=== PATIENT | female | born 1980 | race African-American/Black ===

== ENCOUNTER 2017-06-17 02:08 | Emergency (ER) | payer BC ==
[~2017-06-17] VITALS: Ht 175.3 cm; Wt 182.0 kg
[2017-06-17 02:10] VITALS: BP 137/97; PULSE 116; RESP 20; TEMP 99.9; O2SAT 97
[2017-06-17 02:46] VITALS: TEMP 101.9
[2017-06-17] MEDS ORDERED: SODIUM CHLOR 0.9% 1000 ML INJ 1,000 ML IV ONE ×2 (03:20→05:30)
[2017-06-17] MEDS ORDERED: ACETAMINOPHEN 325 MG TAB PO ONE (03:30)
[2017-06-17 03:39] VITALS: BP 133/99; PULSE 108; RESP 26; O2SAT 100
[2017-06-17] MEDS ORDERED: ONDANSETRON HCL 4 MG/2 ML VIAL IV PUSH ONE (03:45)
[2017-06-17 03:46] LABS: AUTOMATED NEUTROPHIL # 14.8 TH/MM3 (1.8-7.7); BASOPHIL % 0.2 % (0.0-2.0); EOSINOPHIL # 0.1 TH/MM3 (0-0.4); EOSINOPHIL % 0.3 % (0.0-4.0); HEMATOCRIT 38.2 % (35.0-46.0); HEMO FLAGS DIFF FINAL; LYMPH % 7.8 % (9.0-44.0); LYMPHOCYTE # 1.4 TH/MM3 (1.0-4.8); MEAN CELL VOLUME 73.2 FL (80.0-100.0); MEAN CORPUSCULAR HEMOGLOBIN 22.9 PG (27.0-34.0); MEAN CORPUSCULAR HGB CONC 31.2 % (32.0-36.0); NEUT % 84.7 % (16.0-70.0); PLATELET COUNT 316 TH/MM3 (150-450); RED BLOOD COUNT 5.22 MIL/MM3 (4.00-5.30); RED CELL DISTRIBUTION WIDTH 13.9 % (11.6-17.2); WHITE BLOOD COUNT 17.5 TH/MM3 (4.0-11.0)
[2017-06-17 03:55] LABS: ALT (GPT) 35 U/L (10-53); ANION GAP 8 MEQ/L (5-15); AST (GOT) 25 U/L (15-37); BICARBONATE 28.3 MEQ/L (21.0-32.0); BLOOD UREA NITROGEN 13 MG/DL (7-18); CHLORIDE 103 MEQ/L (98-107); GLOMERULAR FILTRATION RATE 75 ML/MIN (>89); POTASSIUM 3.6 MEQ/L (3.5-5.1); SODIUM (NA) 139 MEQ/L (136-145)
[2017-06-17 03:57] LABS: APTT (PATIENT) 24.6 SEC (24.3-30.1); PROTHROMBIN TIME - PATIENT 10.8 SEC (9.8-11.6)
[2017-06-17 03:58] LABS: ALKALINE PHOSPHATASE 54 U/L (45-117); TOTAL BILIRUBIN ADULT 0.4 MG/DL (0.2-1.0)
--- NOTE | 2017-06-17 04:14 | RADRPT ---
EXAM DATE/TIME: 06/17/2017 03:26 [facility] COMPARISON: No previous studies available for comparison. INDICATIONS : Fever and chills, uncontrollable shaking MEDICAL HISTORY : None. SURGICAL HISTORY : None. ENCOUNTER: Initial ACUITY: 1 day PAIN SCORE: 6/10 LOCATION: Bilateral chest FINDINGS: A single view of the chest demonstrates the lungs to be symmetrically aerated without evidence of mas s, infiltrate or effusion. The cardiomediastinal contours are unremarkable. Osseous structures are intact. CONCLUSION: No acute disease. Raul Chacon MD on June 17, 2017 at 4:12 Board Certified Radiologist. This report was verified electronically.
[2017-06-17 04:47] VITALS: BP_SYST 16; BP_SYST 164; BP_DIAS 92; PULSE 104; RESP 20; TEMP 103.1; O2SAT 100
[2017-06-17] MEDS ORDERED: METOCLOPRAMIDE INJ 10 MG in SODIUM CHLORIDE 0.9% INJ 50 ML IV ONE (05:00)
[2017-06-17] MEDS ORDERED: KETOROLAC TROMETHAMINE 30 MG/ML (IVP) VIAL IV PUSH ONE (05:30)
[2017-06-17] MEDS ORDERED: IOHEXOL 350 MG/ML 10 ML VIAL (for RAD DIAG) IV ONE (05:34)
--- NOTE | 2017-06-17 05:54 | RADRPT ---
EXAM DATE/TIME: 06/17/2017 05:33 [facility] COMPARISON: No previous studies available for comparison. INDICATIONS : Abdominal pain with nausea and weakness. IV CONTRAST: 95 cc Omnipaque 350 (iohexol) IV ORAL CONTRAST: No oral contrast ingested. RADIATION DOSE: 29.44 CTDIvol (mGy) ; Patient body habitus MEDICAL HISTORY : None SURGICAL HISTORY : None. ENCOUNTER: Initial ACUITY: 1 day PAIN SCALE: 4/10 LOCATION: Bilateral abdomen TECHNIQUE: Volumetric scanning of the abdomen and pelvis was performed. Using automated exposure control and ad justment of the mA and/or kV according to patient size, radiation dose was kept as low as reasonably achievable to obtain optimal diagnostic quality images. DICOM format image data is available electro nically for review and comparison. FINDINGS: LOWER LUNGS: The visualized lower lungs are clear. LIVER: Decreased density without lesion. There is no dilation of the biliary tree. No calcified gallstones . SPLEEN: Normal size without lesion. PANCREAS: Within normal limits. KIDNEYS: Normal in size and shape. There is no mass, stone or hydronephrosis. ADRENAL GLANDS: Within normal limits. VASCULAR: There is no aortic aneurysm. BOWEL/MESENTERY: The stomach, small bowel, and colon demonstrate no acute abnormality. There is no free intraperitone al air or fluid. Prominent lymph nodes in the upper abdomen are habitus region measures 1.9 cm. There are some other smaller scattered lymph nodes in the right lower quadrant mesentery. ABDOMINAL WALL: Within normal limits. RETROPERITONEUM: There is no lymphadenopathy. BLADDER: No wall thickening or mass. REPRODUCTIVE: Within normal limits. INGUINAL: There is no lymphadenopathy or hernia. MUSCULOSKELETAL: Within normal limits for patient age. CONCLUSION: 1. Hepatic steatosis. 2. Prominent lymph node in the morales hepatis measures 1.9 cm. Other smaller lymph nodes are seen with in the right lower quadrant mesentery. Raul Chacon MD on June 17, 2017 at 5:49 Board Certified Radiologist. This report was verified electronically.
[2017-06-17 05:55] LABS: BACTERIA, URINE RARE /hpf; BLOOD, URINE TRACE (NEG); GLUCOSE,URINE NEG (NEG); KETONE, URINE NEG (NEG); MUCUS URINE FEW /lpf (OCC); NITRITE,URINE NEG (NEG); SQUAMOUS EPITHELIAL CELL URINE 4 /hpf (0-5); URINE COLOR YELLOW (YELLW/STRAW)
[2017-06-17 05:56] LABS: COMMENT (UR) CATH-CULTURE IND; CULTURE IF INDICATED CATH CULTURE IND
[2017-06-17] MEDS ORDERED: cefTRIAXone INJ 1,000 MG in SODIUM CHLORIDE 0.9% INJ 100 ML IV ONE (06:00)
[2017-06-17 06:21] VITALS: BP 158/89; PULSE 89; RESP 16; TEMP 101.2; O2SAT 99
[2017-06-17] MEDS ORDERED: CIPR-9 PO (06:47)
--- NOTE | 2017-06-17 06:47 | PD ---
HPI Chief Complaint: Fever Time Seen by Provider: 03:14 Travel History International Travel<30 days: No Contact w/Intl Traveler<30days: No Traveled to known affect area: No History of Present Illness HPI Patient is a 36-year-old female who comes in complaining of chills. She says she woke up from sleep and she was very very cold. She says that she felt some nausea and some dizziness. She says she has not had any pain. She says before she went to sleep she was feeling fine. She says she has had nausea and vomiting. She denies abdominal pain. She denies chest pain or shortness of breath. She denies cough or cold. PFSH Past Medical History Medical History: Denies Significant Hx Tetanus Vaccination: < 5 Years Influenza Vaccination: No ?: Not LMP: 05/12/17 : 0 Social History Alcohol Use: No Tobacco Use: No Substance Use: No Allergies-Medications (Allergen,Severity, Reaction): Coded Allergies: No Known Allergies (Unverified , 06/17/17) Reported Meds & Prescriptions Reported Meds & Active Scripts Active No Active Prescriptions or Reported Medications Review of Systems Except as stated in HPI: all other systems reviewed are Neg General / Constitutional: Positive: Fever, Chills HENT: No: Lightheadedness, Sore Throat, Congestion Cardiovascular: No: Chest Pain or Discomfort Respiratory: No: Cough, Shortness of Breath Gastrointestinal: Positive: Nausea, Vomiting, No: Abdominal Pain Genitourinary: No: Urgency, Frequency Skin: No Rash, No Change in Pigmentation Neurologic: No: Weakness, Dizziness Physical Exam Narrative GENERAL: Awake and alert, obviously uncomfortable. SKIN: Focused skin assessment warm/dry. HEAD: Atraumatic. Normocephalic. EYES: Pupils equal and round. No scleral icterus. ENT: Mucous membranes pink and moist. NECK: Trachea midline. No JVD. CARDIOVASCULAR: Regular rate and rhythm. No murmur appreciated. RESPIRATORY: No accessory muscle use. Clear to auscultation. Breath sounds equal bilaterally. GASTROINTESTINAL: Abdomen soft, non-tender, nondistended. MUSCULOSKELETAL: No obvious deformities. No clubbing. No cyanosis. No edema. NEUROLOGICAL: Awake and alert. No obvious cranial nerve deficits. Motor grossly within normal limits. Normal speech. PSYCHIATRIC: Appropriate mood and affect; insight and judgment normal. Data Data Last Documented VS Vital Signs Date Time Temp Pulse Resp B/P Pulse Ox O2 Delivery O2 Flow Rate FiO2 06/17/17 06:21 101.2 89 16 158/89 99 Room Air Orders Complete Blood Count With Diff (06/17/17 03:20) Comprehensive Metabolic Panel (06/17/17 03:20) Prothrombin Time / Inr (Pt) (06/17/17 03:20) Act Partial Throm Time (Ptt) (06/17/17 03:20) Lactic Acid Sepsis Protocol (06/17/17 03:20) Lipase (06/17/17 03:20) Urinalysis - C+S If Indicated (06/17/17 03:20) Ua Includes Microscopic (06/17/17 03:20) Influenzae A/B Antigen (06/17/17 03:20) Blood Culture (06/17/17 03:20) Chest, Single Ap (06/17/17 03:20) Blood Glucose (06/17/17 03:20) Ecg Monitoring (06/17/17 03:20) Iv Access Insert/Monitor (06/17/17 03:20) Oximetry (06/17/17 03:20) Oxygen Administration (06/17/17 03:20) Acetaminophen (Tylenol) (06/17/17 03:30) Sodium Chlor 0.9% 1000 Ml Inj (Ns 1000 M (06/17/17 03:20) Ondansetron Inj (Zofran Inj) (06/17/17 03:45) Metoclopramide Inj (Reglan Inj) (06/17/17 05:00) Ct Abd/Pel W Iv Contrast(Rout) (06/17/17 ) Ketorolac Inj (Toradol Inj) (06/17/17 05:30) Sodium Chlor 0.9% 1000 Ml Inj (Ns 1000 M (06/17/17 05:30) Iohexol 350 Inj (Omnipaque 350 Inj) (06/17/17 05:34) Urine Culture (06/17/17 05:08) Ceftriaxone Inj (Rocephin Inj) (06/17/17 06:00) Labs Laboratory Tests Test 06/17/17 06/17/17 03:20 05:08 White Blood Count 17.5 TH/MM3 Red Blood Count 5.22 MIL/MM3 Hemoglobin 11.9 GM/DL Hematocrit 38.2 % Mean Corpuscular Volume 73.2 FL Mean Corpuscular Hemoglobin 22.9 PG Mean Corpuscular Hemoglobin 31.2 % Concent Red Cell Distribution Width 13.9 % Platelet Count 316 TH/MM3 Mean Platelet Volume 8.2 FL Neutrophils (%) (Auto) 84.7 % Lymphocytes (%) (Auto) 7.8 % Monocytes (%) (Auto) 7.0 % Eosinophils (%) (Auto) 0.3 % Basophils (%) (Auto) 0.2 % Neutrophils # (Auto) 14.8 TH/MM3 Lymphocytes # (Auto) 1.4 TH/MM3 Monocytes # (Auto) 1.2 TH/MM3 Eosinophils # (Auto) 0.1 TH/MM3 Basophils # (Auto) 0.0 TH/MM3 CBC Comment DIFF FINAL Differential Comment Prothrombin Time 10.8 SEC Prothromb Time International 1.0 RATIO Ratio Activated Partial 24.6 SEC Thromboplast Time Sodium Level 139 MEQ/L Potassium Level 3.6 MEQ/L Chloride Level 103 MEQ/L Carbon Dioxide Level 28.3 MEQ/L Anion Gap 8 MEQ/L Blood Urea Nitrogen 13 MG/DL Creatinine 1.00 MG/DL Estimat Glomerular Filtration 75 ML/MIN Rate Random Glucose 123 MG/DL Lactic Acid Level 1.7 mmol/L Calcium Level 9.1 MG/DL Total Bilirubin 0.4 MG/DL Aspartate Amino Transf 25 U/L (AST/SGOT) Alanine Aminotransferase 35 U/L (ALT/SGPT) Alkaline Phosphatase 54 U/L Total Protein 9.2 GM/DL Albumin 3.9 GM/DL Lipase 153 U/L Urine Color YELLOW Urine Turbidity HAZY Urine pH 5.0 Urine Specific [place] 1.022 Urine Protein NEG mg/dL Urine Glucose (UA) NEG mg/dL Urine Ketones NEG mg/dL Urine Occult Blood TRACE Urine Nitrite NEG Urine Bilirubin NEG Urine Urobilinogen LESS THAN 2.0 MG/DL Urine Leukocyte Esterase MOD Urine RBC 1 /hpf Urine WBC 1 /hpf Urine Squamous Epithelial 4 /hpf Cells Urine Bacteria RARE /hpf Urine Mucus FEW /lpf Microscopic Urinalysis Comment CATH-CULTURE IND MDM Medical Decision Making Medical Screen Exam Complete: Yes Emergency Medical Condition: Yes Medical Record Reviewed: Yes Differential Diagnosis Pneumonia versus UTI versus pyelonephritis versus gastroenteritis Narrative Course Patient is a 36-year-old female comes in complaining of feeling cold with nausea and vomiting. Exam shows patient is uncomfortable, there is no abdominal tenderness, lungs are clear to auscultation. IV status, labs sent. Patient given IV fluids, Tylenol, Zofran. X-ray shows no acute abnormalities. Labs are significant for an elevated white blood cell count is 17. Patient given a dose of Reglan for continued vomiting. Given Toradol for her fever. CT abdomen and pelvis performed shows some enlarged lymph nodes, no other acute abnormalities. Urinalysis is positive for bacteria. Patient given a dose of Rocephin. Treated for pyelonephritis. She reports feeling much better. She is able to drink water without vomiting. She'll be discharged with a prescription for Cipro. She is advised to follow-up with a primary care doctor. Advised to return to the ED at any time for any worsening symptoms. Diagnosis Primary Impression: Pyelonephritis Patient Instructions: General Instructions, Kidney Infection (ED) Additional Instructions: Take all of your antibiotics. Take Tylenol or ibuprofen as needed for fever or pain. Follow-up with a primary care doctor. Return to the ED as needed for any worsening symptoms. Scripts Ciprofloxacin (Cipro)500 Mg Cvr023 Mg PO BID 10 Days Ref 0 Prov:Brandi Leon MD 06/17/17 Disposition: 01 DISCHARGE HOME Condition: Stable Brandi Leon MD Jun 17, 2017 06:47
== END 2017-06-17 07:57 | disposition home or self-care (01) ==
LOC: EDBD → NEPE 02:08
DX: N12 Tubulo-interstitial nephritis, not specified as acute or chronic (principal); B96.89 Other specified bacterial agents as the cause of diseases classified elsewhere; B95.1 Streptococcus, group B, as the cause of diseases classified elsewhere
CPT/HCPCS: 71010; 74177; 80053; 81001; 83605; 83690; 85025; 85610; 85730; 86403; 87040; 87086; 87186; 87205; 87804; 96361; 96365; 96375; 99285; J0696; J1885; J2405; J2765; J7030; Q9967